=== PATIENT | male | born 1960 | race Caucasian/White ===

== ENCOUNTER 2016-09-05 10:45 | Inpatient (IN) | payer MEDICARE, MEDICAID ==
[~2016-09-05] VITALS: Ht 179.1 cm; Wt 89.5 kg
--- NOTE | ~2016-09-05 | OR ---
ADMIT: 09/05/2016 RM/LOC: 529 [facility] MR#: [id number] [facility] [id number] [address] [address] RAFAEL OREILLY [address] [place] [address] Operative/Delivery Room Report SEX: M AGE: 56 : 1960 SURGERY DATE: 09/06/2016 SURGEON: Alonzo Mitchell MD PREOPERATIVE DIAGNOSIS: Cholelithiasis with cholecystitis. POSTOPERATIVE DIAGNOSIS: Cholelithiasis with gangrenous acute cholecystitis. PROCEDURE: Laparoscopic cholecystectomy. ESL TEACHER: Zach Mulligan MD, whose assistance was necessary for laparoscopic visualization and tissue retraction. ANESTHESIA: General endotracheal. ESTIMATED BLOOD LOSS: 100 mL. DESCRIPTION OF PROCEDURE: The patient was taken to the operating room and placed supine on the operating room table. General anesthesia was established. The abdomen was prepped and draped in the standard surgical fashion. A 5 mm infraumbilical incision was made in the skin. The fascia was grasped with a Meghann clamp, and a Veress needle was advanced into the peritoneal cavity. Carbon dioxide was used to insufflate the abdomen to 15 mmHg pressure. The Veress needle was withdrawn, and a 5 mm Optiview trocar was placed. Laparoscope was advanced and showed intraperitoneal position with no damage to underlying structures. Next, an 11 mm subxiphoid port and two right lateral 5 mm ports were placed under visualization. The gallbladder was identified under omental adhesions. This was markedly distended and necrotic at the dome without perforation. This was decompressed to allow retraction. The Calot's triangle was then carefully dissected. The cystic duct was skeletonized and the view of safety was obtained. The cystic duct was doubly clipped distally, singly clipped proximally, and divided. The cystic artery was skeletonized, doubly clipped proximally, singly clipped distally, and ADMIT: 09/05/2016 RM/LOC: 529 [facility] MR#: [id number] [address] [address] RAFAEL OREILLY [address] [place] [address] Operative/Delivery Room Report SEX: M AGE: 56 : 1960 divided. The gallbladder was then excised from the gallbladder fossa with Bovie cautery. It was placed in an EndoCatch bag and removed through the subxiphoid port site. The right upper quadrant was irrigated after replacement of the port. Bleeding at the gallbladder fossa was controlled with cautery and Surgicel. This provided complete hemostasis. The ports were then removed under visualization without evidence of bleeding. The clips remained intact on the cystic duct and artery. The fascial margin at the subxiphoid port site was closed with 0 Vicryl suture. Skin edges were approximated with 4-0 Monocryl in a subcuticular fashion and Dermabond. Sponge, needle, and instrument counts were correct at the end of the case. The patient tolerated the procedure well and transferred to the recovery area in stable condition. Alonzo Mitchell MD/ erica JOB #: [id number] CC: Alonzo Mitchell, Attending Physician UNKNOWN, Family Physician
[2016-09-09] MEDS ORDERED: COLACE-DPS100 MG PO (10:12)
[2016-09-09] MEDS ORDERED: NORVASC DPS10 MG PO (10:12)
[2016-09-09] MEDS ORDERED: LOTENSIN40 MG PO (10:13)
[2016-09-09] MEDS ORDERED: ZOLOFT DPS50 MG PO (10:13)
[2016-09-09] MEDS ORDERED: THERA-M1 EACH PO (10:13)
[2016-09-09] MEDS ORDERED: COUMADIN DPS2 MG PO (10:13)
[2016-09-09] MEDS ORDERED: PRILOSEC DPS20 MG PO (10:14)
[2016-09-09] MEDS ORDERED: CATAPRES-DPS0.2 MG PO (10:14)
[2016-09-09] MEDS ORDERED: BUSPAR DPS10 MG PO (10:14)
[2016-09-09] MEDS ORDERED: LAMICTAL DPS100 MG PO (10:14)
[2016-09-09] MEDS ORDERED: PEPCID DPS20 MG PO (10:14)
[2016-09-09] MEDS ORDERED: LIPITOR DPS20 MG PO (10:14)
[2016-09-09] MEDS ORDERED: GLUCOPHAGE1000 MG PO (10:14)
[2016-09-09] MEDS ORDERED: MAALOX DPS30 ML PO (10:15)
[2016-09-09] MEDS ORDERED: MILK OF MAGNESI10 ML PO (10:15)
[2016-09-09] MEDS ORDERED: ZOFRAN4 MG PO (10:15)
[2016-09-09] MEDS ORDERED: ATIVAN-DPS1 MG PO (10:15)
[2016-09-09] MEDS ORDERED: LANTUS100 UNITS/ SQ (10:16)
[2016-09-09] MEDS ORDERED: HUMALOG100 UNIT/1 SQ (10:16)
[2016-09-09] MEDS ORDERED: GLUCAGON EMERGEN1 MG IM (10:17)
[2016-09-09] MEDS ORDERED: DULCOLAX-DPS10 MG PR (10:17)
[2016-09-09] MEDS ORDERED: CALMOSEPTINE113 GM TP (10:18)
--- NOTE | 2016-09-10 07:24 | HP ---
ADMIT: 09/05/2016 RM/LOC: 529 [facility] MR#: [id number] [address] [address] REYNALDO OREILLY [address] [place] [id number] Pre-OP History and Physical SEX: M AGE: 56 : 1960 DATE OF SERVICE: ADDENDUM: I have seen Reynaldo independently, reviewed the laboratory and radiographic studies, examined him, and I am in agreement with Brent Hampton's full documented note. Reynaldo does have evidence of hydropic gallbladder by CT consistent with his abdominal pain and nausea and vomiting. Based on that, I have recommended proceeding with laparoscopic cholecystectomy. He is nonverbal and unable to otherwise ask questions. I have discussed the risks of this surgery in detail with Reynaldo, and he seems to agree with that as the plan. Brent Hampton has discussed the risks with the patient's power of esol instructor, who was in agreement also with this plan. Alonzo Mitchell MD/ erica JOB #: [id number] CC: Alonzo Mitchell, Attending Physician UNKNOWN, Family Physician
--- NOTE | 2016-09-10 07:24 | HP ---
ADMIT: 09/05/2016 RM/LOC: 529 [facility] MR#: [id number] [facility]#: [id number] [address] [address] REYNALDO OREILLY [address] [place] [address] History and Physical SEX: M AGE: 56 : 1960 DATE OF SERVICE: CHIEF COMPLAINT: Abdominal pain with nausea and emesis. HISTORY OF PRESENT ILLNESS: Reynaldo is a very pleasant, 56-year-old male, who is nonverbal. This is believed to be attributed from cerebral vascular accident x2. He has been transferred to our Surgical Services because he has been admitted to the hospital in [place] for a 2-day history of abdominal pain and nausea with emesis. When he was fully worked up there, at that time, a CT of his abdomen and pelvis revealed hydropic gallbladder with pericholecystic inflammation. Currently, the patient denies having any pain or emesis. He further denies any hematemesis, dark or bloody stools, diarrhea, or constipation. He is unable to elicit exactly where his abdominal pain is. He did however have prior events like this before his hospitalization. PAST MEDICAL HISTORY: Significant for: 1. Hypertension. 2. Hypercholesterolemia. 3. CVA x2. 4. Diverticulitis. 5. Type 2 diabetes. PAST SURGICAL HISTORY: Tonsils. ALLERGIES: NO KNOWN DRUG ALLERGIES. MEDICATIONS: 1. Acetaminophen 325 mg. 2. Aloe [place] 2%. 3. Amlodipine 10 mg. 4. Artificial Tears. 5. Ativan 1 mg. 6. Atorvastatin 20 mg. 7. Benazepril 40 mg. 8. Buspirone 10 mg. 9. Calmoseptine 0.44/20.625%. 10.Clonidine 0.2 mg. 11.Docusate sodium 100 mg. 12.Famotidine 20 mg. 13.Glucophage 1000 mg. 14.Humalog 100 units/ml. 15.Lamotrigine 100 mg oral tablet. 16.Lantus 100 units. 17.Meloxicam 15 mg. 18.Milk of Mag. 19.Thera-M 9 mg and iron 400 mcg. 20.Tums OTC. 21.Vitamin D3, 1000 units. ADMIT: 09/05/2016 RM/LOC: 529 [facility] MR#: [id number] [address] [place], [place] [address] REYNALDO OREILLY [facility] [address] [place] [id number] History and Physical SEX: M AGE: 56 : 1960 22.Warfarin 2 mg. 23.Zoloft 50 mg. FAMILY HISTORY: Noncontributory. SOCIAL HISTORY: The patient is a former smoker, but denies alcohol or illicit drug use. REVIEW OF SYSTEMS: CONSTITUTIONAL: The patient denies any fever, chills, or night sweats. The rest of comprehensive 10-point review of systems was performed. All other systems are negative. PHYSICAL EXAMINATION: GENERAL: The patient is in no acute distress. He is alert and oriented. HEENT: Head is normocephalic and atraumatic. EOMS are intact. Conjunctivae free of icterus, erythema, or pallor. Pinnae, free of deformities. Nose, midline. No tracheal deviation. NECK: Supple. SKIN: Negative for jaundice, clubbing, edema, pallor, or cyanosis. LUNGS: Clear to auscultation bilaterally. Normal respiratory effort. HEART: Distal pulses intact. Regular rate and rhythm. ABDOMEN: Tender in right upper quadrant. Soft, nondistended. No surgical scarring noted. NEURO: Grossly intact. Unable to visualize eyes as the patient was noncompliant. DIAGNOSTIC IMAGING: CT of abdomen and pelvis from an outside facility revealed acute cholecystitis. ASSESSMENT: Acute cholecystitis. PLAN: The plan is to have the patient admitted for surgical management and undergo laparoscopic possible open cholecystectomy with possible intraoperative cholangiogram tomorrow performed by Dr. Mitchell. I discussed the risks, alternatives, benefits, and complications of this surgery with the patient's POA, to which she is in agreement of this plan, had all questions answered, and would like to proceed. A bulk of the history was also performed by the POA as well. He is admitted, so we will see how he does. Check lab work, make sure his INR is in an acceptable range to proceed with surgery, and we will go from there. KATIE Ricardo / Alonzo Mitchell MD / erica JOB #: [id number] CC: Alonzo Mitchell, Attending Physician ADMIT: 09/05/2016 RM/LOC: 529 [facility] MR#: [id number] [facility] [address] [address] REYNALDO OREILLY [address] [place] [address] History and Physical SEX: M AGE: 56 : 1960 UNKNOWN, Family Physician
--- NOTE | 2016-09-17 08:13 | DS ---
ADMIT: 09/05/2016 RM/LOC: 529 [facility] MR#: [id number] [address] [address] [place] [address] Discharge Summary SEX: M AGE: 56 : 1960 ADMISSION DATE: 09/05/2016 DISCHARGE DATE: 09/07/2016 ADMITTING DIAGNOSIS: Cholelithiasis with cholecystitis. DISMISSAL DIAGNOSES: 1. Acute gangrenous cholecystitis with cholelithiasis. 2. Hypertension. 3. Hypercholesterolemia. 4. CVA (cerebrovascular accident) x2. 5. Diverticulitis. 6. Type 2 diabetes. 7. Previous T and A (tonsillectomy and adenoidectomy). PROCEDURES: Laparoscopic cholecystectomy. HOSPITAL COURSE: The patient was a transfer from [facility] to our hospital for surgical management. She was admitted as an inpatient with routine med surg orders. She was also prepped for lap jovany one day after admission. After surgery, the patient transferred to the floor without any complications. She had normal return of her bowel function. Her pain was controlled and was tolerating an advanced diet. Vitals remained stable while in the hospital and lab work returned to normal. She was getting up and ambulating well, so the patient was able to discharge back to her [facility] on 09/07/2016. DISCHARGE INSTRUCTIONS: 1. Follow up with Dr. Beth in [place], 09/13/2016. 2. Okay to shower. DISCHARGE MEDICATION LIST: 1. Amlodipine 10 mg daily. 2. Docusate sodium 100 mg daily. 3. Benazepril 40 mg daily. 4. Sertraline 50 mg daily. 5. Therapy M with beta-carotene daily. 6. Vitamin D3 2000 units daily. 7. Warfarin 2 mg at night. 8. Clonidine 0.2 mg b.i.d. 9. Famotidine 20 mg b.i.d. 10.Lamotrigine 100 mg b.i.d. 11.Metformin 1000 mg b.i.d. 12.Buspirone 10 mg t.i.d. ADMIT: 09/05/2016 RM/LOC: 529 [facility] MR#: [id number] [address] [facility] [address] [place] [address] [place] [address] Discharge Summary SEX: M AGE: 56 : 1960 13.Atorvastatin 10 mg as directed. 14.Omeprazole 20 mg daily. 15.Lorazepam 1 mg daily p.r.n. 16.Docusate sodium 100 mg daily p.r.n. 17.Milk of Mag 30 mL daily p.r.n. 18.Ondansetron 10 mg q.4 p.r.n. 19.Maalox 30 mL daily p.r.n. 20.Humalog 2 units t.i.d. with meals. 21.Lantus 10 units as directed. 22.Glucagon emergency kit 1 mg p.r.n. 23.Aloe [place] 2% ointment p.r.n. 24.Bisac-Evac 10 mg suppository daily p.r.n. KATIE iRcardo / Alonzo Mitchell MD / garret JOB #: [id number] CC: Alonzo Mitchell MD, Attending Physician UNKNOWN, Family Physician
== END 2016-09-07 15:33 | DRG 419 ==
LOC: 5MS 10:45
PROVIDERS: ADMIT Surgery
PROC: 0FT44ZZ Resection of Gallbladder, Percutaneous Endoscopic Approach (ICD-10-PCS; principal; 2016-09-06)
DX: K80.00 Calculus of gallbladder with acute cholecystitis without obstruction (principal); I10 Essential (primary) hypertension; I69.320 Aphasia following cerebral infarction; E78.00 Pure hypercholesterolemia, unspecified; E11.9 Type 2 diabetes mellitus without complications; K21.9 Gastro-esophageal reflux disease without esophagitis; K57.90 Diverticulosis of intestine, part unspecified, without perforation or abscess without bleeding; Z79.4 Long term (current) use of insulin; Z87.891 Personal history of nicotine dependence